=== PATIENT | female | born 2000 | race Caucasian/White ===

== ENCOUNTER 2018-12-16 03:10 | Emergency (ER) | payer OTHER ==
[~2018-12-16] VITALS: Ht 162.6 cm; Wt 81.6 kg
--- OUTSIDE RECORDS SUMMARY | 2018-12-16 03:12 | XMS REPORT ---
Author Author [facility] Address Unknown Phone Unavailable Care Team Providers Care Dermatology Nurse Name Role Phone Unavailable Unavailable Payers Payer Name Policy Type Policy Number Effective Date Expiration Date Problems This patient has no known problems. Allergies, Adverse Reactions, Alerts Allergy Name Allergy Type Status Severity Reaction(s) Onset Date Inactive Date Treating Clinician Comments codeine DA Active U 2017-08-22 00:00:00 hydrocodone DA Active MO 2017-08-22 00:00:00 Medications This patient has no known medications. Results Test Description Test Time Test Comments Text Results Atomic Results Result Comments - XR CHEST 2 V 2018-10-08 15:53:00 Name: ALBA BAILON [facility] : 2000 Age/S:18 /F [address] [facility] Unit#:[id number] Loc: [place] [address] Phys: Wicho Meza MD Dis Date: PHONE #: [phone] Status: REG ER FAX #: [phone] Exam Date: 10/08/2018 Reason: cough EXAMS: CPT CODE: [id number] XR CHEST 2 V [id number] EXAM: Chest X-ray, 2 views; CLINICAL HISTORY: Cough, pneumonia; FINDINGS: The lungs are clear, no infiltrates, no edema; no effusions; no pneumothorax; normal cardiomediastinal silhouette. IMPRESSION: Normal chest x-ray. at 1553 Reported and signed by: Andres Perez M.D. CC: Wicho Meza MD Technologist: Vandana Otero Trnscrpt Data: 10/08/2018 ([id number]) [email or web address] Orig Print D/T: S: 10/08/2018 ([id number]) PAGE 1 Signed Report BASIC METABOLIC PANEL 2018-10-04 02:04:00 SODIUM (test code=NA) 142 mmol/L 135-148 POTASSIUM (test code=K) 3.2 mmol/L 3.5-5.1 CHLORIDE (test code=CL) 104 mmol/L 101-109 CARBON DIOXIDE (test code=CO2) 26.2 mmol/L 21-32 ANION GAP (test code=GAP) 15 mmol/L 10-20 GLUCOSE (test code=GLU) 99 mg/dL 74-106 BLOOD UREA NITROGEN (test code=BUN) 7 mg/dL 3-21 GLOMERULAR FILTRATION RATE (test code=GFR) > 60 mL/min >=60 Estimated GFR by using Modified MDRD formula.Chronic kidney disease is defined as either kidney damageor GFR <60 mL/min/1.73 m2 for >3 months. CREATININE (test code=CREAT) 0.97 mg/dL 0.55-1.3 BUN/CREATININE RATIO (test code=BUN/CREA) 7.2 10-20 CALCIUM (test code=CA) 9.2 mg/dL 8.4-10.2 HEPATIC FUNCTION [id number] 02:04:00* Test Item Value Reference Range Comments TOTAL PROTEIN (test code=PROT) 8.0 g/dL 6.5-8.4 ALBUMIN (test code=ALB) 4.1 g/dL 3.4-4.8 GLOBULIN (test code=GLOB) 3.9 G/DL 1-10 ALBUMIN/GLOBULIN RATIO (test code=A/G) 1.1 RATIO 0.75-1.50 BILIRUBIN TOTAL (test code=BILT) 0.50 mg/dL 0.0-1.0 BILIRUBIN DIRECT (test code=BILD) 0.10 mg/dL 0.0-0.30 SGOT/AST (test code=AST) 18 U/L 6-32 SGPT/ALT (test code=ALT) 35 U/L 12-78 Note: Change in REFERENCE RANGE due to new reagent method. ALKALINE PHOSPHATASE TOTAL (test code=ALKP) 88 U/L 38-126 [id number] 02:04:00* Test Item Value Reference Range Comments LIPASE (test code=LIP) 64 U/L 128-270 HCG SERUM [id number] 02:04:00* Test Item Value Reference Range Comments HCG SERUM QUAL (test code=HCGQL) NEGATIVE NEGATIVE This HCGQL test is NOT applicable for MALE patients.Check with nurse about probable order error.If Tumor Marker Test needed, nurse should order test "HCGTU"(Test #[id number]) BASIC METABOLIC [id number] 01:44:00* Test Item Value Reference Range Comments SODIUM (test code=NA) mmol/L 135-148 POTASSIUM (test code=K) mmol/L 3.5-5.1 CHLORIDE (test code=CL) mmol/L 101-109 CARBON DIOXIDE (test code=CO2) mmol/L 21-32 ANION GAP (test code=GAP) mmol/L 10-20 GLUCOSE (test code=GLU) mg/dL 74-106 BLOOD UREA NITROGEN (test code=BUN) mg/dL 3-21 GLOMERULAR FILTRATION RATE (test code=GFR) mL/min >=60 CREATININE (test code=CREAT) mg/dL 0.55-1.3 BUN/CREATININE RATIO (test code=BUN/CREA) 10-20 CALCIUM (test code=CA) mg/dL 8.4-10.2 HEPATIC FUNCTION [id number] 01:44:00* Test Item Value Reference Range Comments TOTAL PROTEIN (test code=PROT) gram/dL 6.4-8.2 ALBUMIN (test code=ALB) g/dL 3.4-5.0 GLOBULIN (test code=GLOB) g/dL 2.7-4.2 ALBUMIN/GLOBULIN RATIO (test code=A/G) 0.75-1.50 BILIRUBIN TOTAL (test code=BILT) mg/dL 0.2-1.2 BILIRUBIN DIRECT (test code=BILD) mg/dL 0.0-0.20 SGOT/AST (test code=AST) IUnit/L 15-37 SGPT/ALT (test code=ALT) U/L 10-69 ALKALINE PHOSPHATASE TOTAL (test code=ALKP) IUnit/L 45-117 [id number] 01:44:00* Test Item Value Reference Range Comments LIPASE (test code=LIP) Unit/L 144-286 HCG SERUM [id number] 01:44:00* Test Item Value Reference Range Comments HCG SERUM QUAL (test code=HCGQL) NEGATIVE NEGATIVE This HCGQL test is NOT applicable for MALE patients.Check with nurse about probable order error.If Tumor Marker Test needed, nurse should order test "HCGTU"(Test #[id number]) CBC W/O [id number] 01:36:00* Test Item Value Reference Range Comments WHITE BLOOD CELL (test code=WBC) 7.0 K/mm3 4.5-12.5 RED BLOOD CELL (test code=RBC) 4.34 mill/mm3 3.7-5.2 HEMOGLOBIN (test code=HGB) 13.2 gram/dL 11.5-15.5 HEMATOCRIT (test code=HCT) 39.3 % 36.0-46.0 MEAN CELL VOLUME (test code=MCV) 90.6 fL 80-98 MEAN CELL HGB (test code=MCH) 30.4 picogram 27.0-33.0 MEAN CELL HGB CONCETRATION (test code=MCHC) 33.6 gram/dL 33.0-36.0 RED CELL DISTRIBUTION WIDTH (test code=RDW) 13.4 % 11.6-16.2 RED CELL DISTRIBUTION WIDTH SD (test code=RDW-SD) 43.7 fL 39.1-52.0 PLATELET COUNT (test code=PLT) 241 K/mm3 150-450 MEAN PLATELET VOLUME (test code=MPV) 11.2 fL 6.7-11.0 URINALYSIS [id number] 01:36:00* Test Item Value Reference Range Comments UA COLOR (test code=COLU) YELLOW YELLOW UA APPEARANCE (test code=APPU) HAZY CLEAR UA GLUCOSE DIPSTICK (test code=DGLUU) NORMAL mg/dL NEGATIVE UA BILIRUBIN DIPSTICK (test code=BILU) NEGATIVE mg/dL NEGATIVE UA KETONE DIPSTICK (test code=KETU) 5 (Trace) mg/dL NEGATIVE UA SPECIFIC GRAVITY (test code=SGU) 1.020 1.001-1.035 UA BLOOD DIPSTICK (test code=MARY) neg Rodolfo/uL NEGATIVE UA PH DIPSTICK (test code=JONATHAN) 5.0 5.0-8.0 UA PROTEIN DIPSTICK (test code=PROU) 15 (TRACE) mg/dL Neg-15 UA UROBILINIOGEN DIPSTICK (test code=URO) 1 mg/dL 0.0-0.2 UA NITRITE DIPSTICK (test code=INO) NEGATIVE NEGATIVE UA LEUKOCYTE ESTERASE DIPSTICK (test code=LEUU) 25 (Trace) uL NEGATIVE UA WBC (test code=WBCU) 0-5 per HPF 0-5 IN SOME URINARY TRACT INFECTIONS THERE MAY NOT BE ENOUGHWBCs IN THE URINE TO TRIGGER AN AUTOMATIC (REFLEX) URINECULTURE. A SEPERATE ORDER FOR URINE CULTURE IS RECOMMENDEDIF THERE IS STRONG SUPPORT FOR A URINARY TRACT INFECTIONCLINICALLY. UA RBC (test code=RBCU) 0-2 per HPF 0-5 UA EPITHELIAL CELLS (test code=EPIU) Moderate (5-10/hpf) per HPF Few UA BACTERIA (test code=BACU) MODERATE per HPF NONE UA MUCUS (test code=MUCU) MANY per LPF NONE-FEW Urine Source? Clean CatchURINALYSIS [id number] 01:34:00* Test Item Value Reference Range Comments UA COLOR (test code=COLU) YELLOW YELLOW UA APPEARANCE (test code=APPU) HAZY CLEAR UA GLUCOSE DIPSTICK (test code=DGLUU) NORMAL mg/dL NEGATIVE UA BILIRUBIN DIPSTICK (test code=BILU) NEGATIVE mg/dL NEGATIVE UA KETONE DIPSTICK (test code=KETU) 5 (Trace) mg/dL NEGATIVE UA SPECIFIC GRAVITY (test code=SGU) 1.020 1.001-1.035 UA BLOOD DIPSTICK (test code=MARY) neg Rodolfo/uL NEGATIVE UA PH DIPSTICK (test code=JONATHAN) 5.0 5.0-8.0 UA PROTEIN DIPSTICK (test code=PROU) 15 (TRACE) mg/dL Neg-15 UA UROBILINIOGEN DIPSTICK (test code=URO) 1 mg/dL 0.0-0.2 UA NITRITE DIPSTICK (test code=INO) NEGATIVE NEGATIVE UA LEUKOCYTE ESTERASE DIPSTICK (test code=LEUU) 25 (Trace) uL NEGATIVE UA WBC (test code=WBCU) per HPF 0-5 Urine Source? Clean Catch
--- OUTSIDE RECORDS SUMMARY | 2018-12-16 03:12 | XMS REPORT | Clinical Summary ---
Author Author [facility] Address Unknown Phone Unavailable Care Team Providers Care Hydrostatic Tubing Tester Name Role Phone Pcp, No PCP Unavailable Allergies Comments Active Allergy Reactions Severity Noted Date Codeine Hives 09/12/2018 Medications End Date Status Medication Sig Dispensed Refills Start Date 09/19/2018 amoxicillin (AMOXIL) 875 Take 1 tablet 14 tablet 0 201 MG tablet (875 mg 9 total) by mouth 2 (two) times daily for 7 days. Active Problems Not on file Encounters Care Team Description Date Type Specialty Michael Morales MD Acute streptococcal pharyngitis (Primary Dx) 09/14/2018 Emergency Emergency Medicine 09/14/2018 Travel Steve Esposito MD Strep pharyngitis (Primary Dx) 09/12/2018 Emergency Emergency Medicine 09/12/2018 Travel after 12/15/2017 Social History Date Tobacco Use Types Packs/Day Years Used Current Every Day Smoker 0.5 Smokeless Tobacco: Never Used Alcohol Use Drinks/Week oz/Week Comments Yes Sex Assigned at Date Recorded Not on file Industry Job Start Date Occupation Not on file Not on file Not on file Travel End Travel History Travel Start No recent travel history available. Last Filed Vital Signs Time Taken Vital Sign Reading 09/14/2018 2:12 PM [employer] Blood Pressure 144/63 09/14/2018 4:19 PM [employer] OPER[employer] Pulse 84 09/14/2018 4:19 PM [employer]HO[employer] OPERATOR Temperature 37.3 C (99.2 F) 09/14/2018 4:19 PM BACKHOE OPERATOR Respiratory Rate 18 09/12/2018 3:50 PM BACKHOE OPERATOR Oxygen Saturation 98% - Inhaled Oxygen - Concentration 09/14/2018 2:12 PM BACKHOE OPERATOR Weight 88.7 kg (195 lb 8 oz) 09/14/2018 2:12 PM BACKHOE OPERATOR Height 162.6 cm (5' 4") 09/14/2018 2:12 PM BACKHOE OPERATOR Body Mass Index 33.56 Plan of Treatment Not on file Results Not on fileafter 12/15/2017
[2018-12-16 03:46] LABS: CLARITY,URINE HAZY (CLEAR)
[2018-12-16 03:47] LABS: BILIRUBIN,URINE 1+ (NEGATIVE); KETONES,URINE TRACE (NEGATIVE); LEUKOCYTE ESTERASE ,URINE TRACE (NEGATIVE); NITRITE,URINE NEGATIVE (NEGATIVE); PROTEIN,URINE DIPSTICK TRACE (NEGATIVE); URINE UROBILINOGEN 0.2 mg/dL (0.2 - 1)
[2018-12-16 03:48] LABS: BACTERIA,URINE MODERATE /HPF; COLOR,URINE AMBER (YELLOW); EPITHELIAL CELLS,URINE MODERATE /LPF; PREGNANCY TEST, URINE NEGATIVE (NEGATIVE); RBC,URINE 0-5 /HPF (0-5)
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
[2018-12-16 05:00] VITALS: BP 108/69
== END 2018-12-16 05:02 | disposition home or self-care (01) ==
LOC: ER 03:10
DX: M25.512 Pain in left shoulder (principal); M54.2 Cervicalgia; S46.812A Strain of other muscles, fascia and tendons at shoulder and upper arm level, left arm, initial encounter; M54.5 Low back pain; S39.012A Strain of muscle, fascia and tendon of lower back, initial encounter; V43.52XA Car driver injured in collision with other type car in traffic accident, initial encounter; Y92.488 Other paved roadways as the place of occurrence of the external cause
CPT/HCPCS: 72040; 72070; 72100; 81001; 81025; 99283